=== PATIENT | male | born 1945 | race Two or more races ===

== ENCOUNTER 2017-03-06 22:29 | Emergency (ER) | payer OTHER, MEDICAID ==
[~2017-03-06] VITALS: Ht 160 cm; Wt 60.8 kg
[2017-03-07] MEDS ORDERED: ACETAMINOPHEN 500 MG TAB PO ONE (01:45)
[2017-03-07 02:31] VITALS: BP 120/76
== END 2017-03-07 02:56 | disposition home or self-care (01) ==
LOC: ER 22:34
DX: S02.80XA Fracture of other specified skull and facial bones, unspecified side, initial encounter for closed fracture (principal); I11.0 Hypertensive heart disease with heart failure; I50.9 Heart failure, unspecified; E11.9 Type 2 diabetes mellitus without complications; W01.0XXA Fall on same level from slipping, tripping and stumbling without subsequent striking against object, initial encounter; Y93.89 Activity, other specified; Y99.0 Civilian activity done for income or pay; Y92.69 Other specified industrial and construction area as the place of occurrence of the external cause
CPT/HCPCS: 70450; 70486; 72125

== ENCOUNTER 2017-06-10 15:37 | Emergency (ER) | payer OTHER, MEDICAID ==
[~2017-06-10] VITALS: Ht 157.5 cm; Wt 59.4 kg
[2017-06-10 16:36] LABS: Basophils # (auto) 0 uL; Basophils % (auto) 0.3 % (0.0-2.0); Eosinophils # (auto) 0 uL; Eosinophils % (auto) 0.3 % (0.0-7.0); Hemoglobin 15.1 g/dL (13.5-17.5); Lymphocytes # (auto) 1.1 uL; Lymphocytes % (auto) 13.7 % (10.0-50.0); Mean Corpuscular Hemoglobin 29.1 pg (28.0-32.0); Mean Corpuscular Hgb Conc. 33.4 g/dL (32.0-36.0); Mean Platelet Volume 7.8 fL (6.9-10.8); Monocytes # (auto) 0.5 uL; Monocytes % (auto) 5.9 % (0.0-12.0); Neutrophils # (auto) 6.5 uL; Neutrophils % (auto) 79.8 % (37.0-80.0); Nucleated Red Blood Cells % 0.3 %; Platelet Count (auto) 169 10^3/uL (140-450); Red Cell Distribution Width 13.8 % (11.8-14.3); White Blood Cell 8.2 10^3/uL (4.4-10.8)
[2017-06-10 17:02] LABS: Albumin 3.6 g/dL (3.4-5.0); BUN/Creatinine Ratio 16.5; Bilirubin, Total 0.8 mg/dL (0.2-1.0); Potassium 4.1 mmol/L (3.5-5.1); Total Protein 8.4 g/dL (6.4-8.2)
[2017-06-10] MEDS ORDERED: SODIUM CHLORIDE 0.9% 1,000 ML IV ONE (17:30)
[2017-06-10] MEDS ORDERED: DILTIAZEM HCL 25 MG/5 ML VIAL IV ONE (17:30)
[2017-06-10 18:27] VITALS: BP 167/80
== END 2017-06-10 18:38 | disposition short-term general hospital (02) ==
LOC: ER 15:44
DX: I63.9 Cerebral infarction, unspecified (principal); I62.00 Nontraumatic subdural hemorrhage, unspecified; I11.0 Hypertensive heart disease with heart failure; I50.9 Heart failure, unspecified; E11.9 Type 2 diabetes mellitus without complications
CPT/HCPCS: 36415; 70450; 71020; 80053; 82962; 83605; 84484; 85025; 87040; 93005; 96361; 96374; 99291

== ENCOUNTER 2018-05-03 14:05 | Emergency (ER) | payer OTHER, MEDICAID ==
[2018-05-03 15:20] VITALS: BP 183/108
== END 2018-05-03 17:01 | disposition home or self-care (01) ==
LOC: ER 14:13
DX: S05.02XA Injury of conjunctiva and corneal abrasion without foreign body, left eye, initial encounter (principal); T65.891A Toxic effect of other specified substances, accidental (unintentional), initial encounter; T26.62XA Corrosion of cornea and conjunctival sac, left eye, initial encounter; Y93.89 Activity, other specified; Y99.8 Other external cause status; Y92.89 Other specified places as the place of occurrence of the external cause

== ENCOUNTER → 2020-03-18 | Emergency (ER) | payer OTHER, MEDICAID ==
[~2020-03-18] VITALS: Ht 170.2 cm; Wt 59.0 kg
[2020-03-18 17:45] LABS: Basophils # (auto) 0 10 ^3/uL (0-0.2); Basophils % (auto) 0.3 % (0.0-2.0); Eosinophils # (auto) 0.1 10 ^3/uL (0-0.8); Eosinophils % (auto) 0.6 % (0.0-7.0); Hematocrit 29.3 % (41.0-53.0); Monocytes # (auto) 0.5 10 ^3/uL (0-1.3)
[2020-03-18 17:47] LABS: Hemoglobin 8.6 g/dL (13.5-17.5); Lymphocytes # (auto) 0.8 10 ^3/uL (0.4-5.4); Lymphocytes % (auto) 7.1 % (10.0-50.0); Mean Corpuscular Hemoglobin 21.4 pg (28.0-32.0); Mean Corpuscular Hgb Conc. 29.5 g/dL (32.0-36.0); Mean Corpuscular Volume 72.4 fL (80.0-100.0); Monocytes % (auto) 4.7 % (0.0-12.0); Neutrophils # (auto) 9.4 10 ^3/uL (1.6-8.6); Neutrophils % (auto) 87.3 % (37.0-80.0); Platelet Count (auto) 166 10^3/uL (140-450); Red Blood Cells 4.04 10^6/uL (4.5-5.90); White Blood Cell 10.8 10^3/uL (4.4-10.8)
[2020-03-18 17:48] LABS: Red Cell Distribution Width 27.2 % (11.8-14.3)
[2020-03-18 17:54] LABS: INR 1.13 (0.9-1.15); Partial Thromboplastin Time 26.8 sec (23.64-32.05)
[2020-03-18 21:45] VITALS: BP 100/51
== END | disposition home or self-care (01) ==
LOC: EDBD 15:17 → ER 15:17 → EDUNIT# 15:17
DX: R04.0 Epistaxis (principal); D64.9 Anemia, unspecified; I11.0 Hypertensive heart disease with heart failure; I50.9 Heart failure, unspecified; E11.9 Type 2 diabetes mellitus without complications
CPT/HCPCS: 30901; 36415; 85025; 85610; 85730

== ENCOUNTER 2020-06-26 19:43 | Inpatient (IN) | payer OTHER, MEDICAID ==
[~2020-06-26] VITALS: Ht 157.5 cm; Wt 57.6 kg
[2020-06-26 21:27] LABS: Basophils # (auto) 0 10 ^3/uL (0-0.2); Eosinophils # (auto) 0 10 ^3/uL (0-0.8); Hematocrit 34.5 % (41.0-53.0); Hemoglobin 10.9 g/dL (13.5-17.5); Monocytes # (auto) 0.9 10 ^3/uL (0-1.3)
[2020-06-26 21:29] LABS: Lymphocytes # (auto) 1.1 10 ^3/uL (0.4-5.4); Lymphocytes % (auto) 6.8 % (10.0-50.0); Mean Corpuscular Hemoglobin 25.8 pg (28.0-32.0); Mean Corpuscular Hgb Conc. 31.6 g/dL (32.0-36.0); Mean Corpuscular Volume 81.8 fL (80.0-100.0); Monocytes % (auto) 5.6 % (0.0-12.0); Neutrophils % (auto) 87.6 % (37.0-80.0); Platelet Count (auto) 227 10^3/uL (140-450); Red Blood Cells 4.22 10^6/uL (4.5-5.90); Red Cell Distribution Width 15.7 % (11.8-14.3)
[2020-06-26 21:35] LABS: INR 1.03 (0.9-1.15); Partial Thromboplastin Time 25.6 sec (23.0-31.2)
[2020-06-26 21:38] LABS: Calcium 9.5 mg/dL (8.5-10.1); Magnesium 2.7 mg/dL (1.6-2.6)
[2020-06-26 21:46] LABS: BUN/Creatinine Ratio 33.9; Bilirubin, Total 0.4 mg/dL (0.2-1.0)
[2020-06-26 21:51] LABS: Potassium 6.3 mmol/L (3.5-5.1)
[2020-06-26] MEDS ORDERED: DEXTROSE (50%) 50ML SYRG IV ONE (22:15)
[2020-06-26] MEDS ORDERED: FUROSEMIDE 20 MG/2 ML VIAL IV ONE (22:15)
[2020-06-26] MEDS ORDERED: SODIUM BICARBONATE 8.4% INJ 50ML SYRINGE IV ONE (22:15)
[2020-06-26] MEDS ORDERED: InsuLIN REG 1unit/0.01ml Soln (100units/ml) IV ONE (22:15)
[2020-06-26] MEDS ORDERED: ALBUTEROL SULF 2.5 MG/0.5ML(0.5%) NEB SOLN NEB ONE (22:15)
[2020-06-26] MEDS ORDERED: CALCIUM GLUC 4.65meq/50ml D5AE 50 ML IV ONE (22:15)
[2020-06-26] MEDS ORDERED: ENOXAPARIN SOD 60 MG/0.6 ML SYRINGE SC ONE (22:45)
[2020-06-27 00:25] LABS: Urine Bacteria MANY /hpf (None Seen); Urine Blood 2+ /uL (Negative); Urine Specific Gravity 1.015 (1.001-1.035); Urine WBC 3194 /hpf (0 - 3); Urine WBC Clumps PRESENT /hpf (None Seen)
[2020-06-27] MEDS ORDERED: dilTIAZem 120MG ER CAP PO ONE (00:45)
[2020-06-27] MEDS ORDERED: dilTIAZem 25 MG/5 ML VIAL IV ONE (00:45)
[2020-06-27 01:13] LABS: BUN/Creatinine Ratio 32.9
[2020-06-27] MEDS ORDERED: cefTRIAXone 1GM/50ML D5W 50 ML IV ONE (01:30)
[2020-06-27] MEDS ORDERED: MORPHINE SULF INJ 2 MG/ML SYRINGE 1ML IV PRN ×2 (04:00)
[2020-06-27] MEDS ORDERED: NITROGLYCERIN 0.4 MG SL TAB SL PRN (04:00)
[2020-06-27] MEDS ORDERED: SODIUM CHLORIDE 0.9% 1,000 ML IV SCH (04:00)
[2020-06-27] MEDS ORDERED: DEXTROSE (50%) 50ML SYRG IV PRN (04:00)
[2020-06-27] MEDS ORDERED: ONDANSETRON HCL 4 MG/2 ML VIAL IV PRN (04:00)
[2020-06-27] MEDS ORDERED: SODI650T PO (04:21)
[2020-06-27] MEDS ORDERED: APIX2.5T PO (04:21)
[2020-06-27] MEDS ORDERED: HYDR-2691 PO (04:21)
[2020-06-27] MEDS ORDERED: FIN5T PO (04:21)
[2020-06-27] MEDS ORDERED: METO1TAB9 PO (04:21)
[2020-06-27] MEDS ORDERED: TAMS0.4C36 PO (04:21)
[2020-06-27 05:52] LABS: Basophils # (auto) 0 10 ^3/uL (0-0.2); Basophils % (auto) 0.1 % (0.0-2.0); Eosinophils # (auto) 0 10 ^3/uL (0-0.8); Lymphocytes # (auto) 0.9 10 ^3/uL (0.4-5.4); Lymphocytes % (auto) 6.2 % (10.0-50.0); Mean Corpuscular Hgb Conc. 32.3 g/dL (32.0-36.0); White Blood Cell 14.1 10^3/uL (4.4-10.8)
[2020-06-27 05:54] LABS: Hematocrit 28.7 % (41.0-53.0); Hemoglobin 9.3 g/dL (13.5-17.5); Mean Corpuscular Hemoglobin 26.1 pg (28.0-32.0); Mean Corpuscular Volume 80.9 fL (80.0-100.0); Monocytes # (auto) 0.8 10 ^3/uL (0-1.3); Monocytes % (auto) 5.8 % (0.0-12.0); Neutrophils # (auto) 12.4 10 ^3/uL (1.6-8.6); Neutrophils % (auto) 87.9 % (37.0-80.0); Platelet Count (auto) 166 10^3/uL (140-450); Red Blood Cells 3.54 10^6/uL (4.5-5.90); Red Cell Distribution Width 15.2 % (11.8-14.3)
[2020-06-27 06:11] LABS: Albumin 3.1 g/dL (3.4-5.0); Calcium 9.3 mg/dL (8.5-10.1); Potassium 4.9 mmol/L (3.5-5.1)
[2020-06-27 06:13] LABS: BUN/Creatinine Ratio 33.8
[2020-06-27 06:16] LABS: Bilirubin, Total 0.3 mg/dL (0.2-1.0); Total Protein 7.5 g/dL (6.4-8.2)
[2020-06-27] MEDS: ACCU-CHEK COMFORT CURVE STRIP VI SCH ×4 (07:14→22:00)
[2020-06-27] MEDS: InsuLIN REG 1unit/0.01ml Soln (100units/ml) SC SCH ×4 (07:14→21:31)
[2020-06-27] MEDS ORDERED: SODIUM BICARBONATE 50ML VIAL 50 ML in SOD CHL 0.45% 1,000 ML IV SCH (08:30)
[2020-06-27 08:40] VITALS: BP 103/63
[2020-06-27 09:00] VITALS: BP 103/63
[2020-06-27] MEDS: APIXABAN 2.5 MG TAB PO SCH ×2 (09:45→22:00)
[2020-06-27] MEDS: TAMSULOSIN HYDROCHLORIDE 0.4 MG CAP PO SCH (09:45)
[2020-06-27] MEDS: FINASTERIDE 5 MG TAB PO SCH (09:45)
[2020-06-27] MEDS ORDERED: METOPROLOL SUCCINATE XL 50 MG TAB PO SCH (10:00)
[2020-06-27] MEDS ORDERED: hydrALAZINE HCL 25 MG TAB PO SCH (10:00)
[2020-06-27] MEDS: SODIUM BICARBONATE 50ML VIAL 50 ML in SOD CHL 0.45% 1,000 ML IV SCH ×2 (11:31→18:44)
[2020-06-27 13:00] VITALS: BP 97/52
[2020-06-27 13:34] LABS: Urine Bacteria FEW /hpf (None Seen); Urine Blood 3+ /uL (Negative); Urine WBC 5716 /hpf (0 - 3); Urine WBC Clumps PRESENT /hpf (None Seen)
[2020-06-27 13:37] LABS: Urine Specific Gravity 1.014 (1.001-1.035)
[2020-06-27 13:52] LABS: Protein, Urine 152.3 mg/dL (0.0-11.9)
[2020-06-27 17:00] VITALS: BP 106/62
[2020-06-27 22:00] VITALS: BP 90/56
[2020-06-28 05:00] VITALS: BP 96/57
[2020-06-28] MEDS: ACCU-CHEK COMFORT CURVE STRIP VI SCH ×4 (06:17→21:14)
[2020-06-28] MEDS: SODIUM BICARBONATE 50ML VIAL 50 ML in SOD CHL 0.45% 1,000 ML IV SCH ×2 (06:17→17:08)
[2020-06-28] MEDS: InsuLIN REG 1unit/0.01ml Soln (100units/ml) SC SCH ×4 (06:18→21:14)
[2020-06-28 06:22] LABS: Basophils # (auto) 0 10 ^3/uL (0-0.2); Basophils % (auto) 0.1 % (0.0-2.0); Lymphocytes # (auto) 1.3 10 ^3/uL (0.4-5.4); Neutrophils # (auto) 9.8 10 ^3/uL (1.6-8.6); Neutrophils % (auto) 81.4 % (37.0-80.0); White Blood Cell 12.1 10^3/uL (4.4-10.8)
[2020-06-28 06:24] LABS: Eosinophils # (auto) 0 10 ^3/uL (0-0.8); Eosinophils % (auto) 0.3 % (0.0-7.0); Hematocrit 24.8 % (41.0-53.0); Hemoglobin 8.1 g/dL (13.5-17.5); Lymphocytes % (auto) 10.5 % (10.0-50.0); Mean Corpuscular Hemoglobin 26.3 pg (28.0-32.0); Mean Corpuscular Hgb Conc. 32.6 g/dL (32.0-36.0); Mean Corpuscular Volume 80.7 fL (80.0-100.0); Monocytes # (auto) 0.9 10 ^3/uL (0-1.3); Monocytes % (auto) 7.7 % (0.0-12.0); Platelet Count (auto) 149 10^3/uL (140-450); Red Blood Cells 3.07 10^6/uL (4.5-5.90); Red Cell Distribution Width 15.6 % (11.8-14.3)
[2020-06-28 06:36] LABS: Albumin 2.7 g/dL (3.4-5.0); Calcium 8.4 mg/dL (8.5-10.1); Potassium 5.1 mmol/L (3.5-5.1)
[2020-06-28 06:40] LABS: Bilirubin, Total 0.2 mg/dL (0.2-1.0); Total Protein 6.2 g/dL (6.4-8.2)
[2020-06-28 06:49] LABS: BUN/Creatinine Ratio 41.8
[2020-06-28 09:00] VITALS: BP 92/57
[2020-06-28] MEDS: METOPROLOL SUCCINATE XL 50 MG TAB PO SCH ×2 (10:00→10:50)
[2020-06-28] MEDS ORDERED: cefTRIAXone 1GM/50ML D5W 50 ML IV SCH (10:00)
[2020-06-28] MEDS: TAMSULOSIN HYDROCHLORIDE 0.4 MG CAP PO SCH (10:50)
[2020-06-28] MEDS: FINASTERIDE 5 MG TAB PO SCH (10:50)
[2020-06-28] MEDS: APIXABAN 2.5 MG TAB PO SCH ×2 (10:50→21:14)
[2020-06-28 13:00] VITALS: BP 119/70
[2020-06-28] MEDS ORDERED: ERTAPENEM SOD INJ 1 GM in SODIUM CHL 0.9% 50 ML IV ONE (15:30)
[2020-06-28 17:02] VITALS: BP 100/62
[2020-06-28 22:00] VITALS: BP 107/64
[2020-06-29] MEDS: SODIUM BICARBONATE 50ML VIAL 50 ML in SOD CHL 0.45% 1,000 ML IV SCH (02:44)
[2020-06-29 05:00] VITALS: BP 100/58
[2020-06-29] MEDS: InsuLIN REG 1unit/0.01ml Soln (100units/ml) SC SCH ×4 (06:01→22:00)
[2020-06-29] MEDS: ACCU-CHEK COMFORT CURVE STRIP VI SCH ×4 (06:02→22:01)
[2020-06-29 06:43] LABS: Basophils # (auto) 0 10 ^3/uL (0-0.2); Basophils % (auto) 0.2 % (0.0-2.0); Eosinophils # (auto) 0.1 10 ^3/uL (0-0.8); Hematocrit 23.2 % (41.0-53.0); Hemoglobin 7.6 g/dL (13.5-17.5); Lymphocytes # (auto) 1.2 10 ^3/uL (0.4-5.4); Lymphocytes % (auto) 12.2 % (10.0-50.0); Mean Corpuscular Hemoglobin 26.4 pg (28.0-32.0); Mean Corpuscular Hgb Conc. 32.6 g/dL (32.0-36.0); Mean Corpuscular Volume 80.8 fL (80.0-100.0); Monocytes # (auto) 0.7 10 ^3/uL (0-1.3); Monocytes % (auto) 7.5 % (0.0-12.0); Neutrophils # (auto) 7.8 10 ^3/uL (1.6-8.6); Neutrophils % (auto) 79.1 % (37.0-80.0); Nucleated Red Blood Cells % 0.1 %; Platelet Count (auto) 143 10^3/uL (140-450); Red Blood Cells 2.88 10^6/uL (4.5-5.90); Red Cell Distribution Width 15.7 % (11.8-14.3); White Blood Cell 9.9 10^3/uL (4.4-10.8)
[2020-06-29 06:56] LABS: Albumin 2.4 g/dL (3.4-5.0); Calcium 7.9 mg/dL (8.5-10.1); Potassium 4.5 mmol/L (3.5-5.1)
[2020-06-29 06:59] LABS: BUN/Creatinine Ratio 39.3; Bilirubin, Total 0.2 mg/dL (0.2-1.0); Total Protein 5.7 g/dL (6.4-8.2)
[2020-06-29] MEDS ORDERED: SODIUM BICARBONATE 50ML VIAL 50 ML in SOD CHL 0.45% 1,000 ML IV SCH (08:30)
[2020-06-29 09:00] VITALS: BP 104/65
[2020-06-29] MEDS: METOPROLOL SUCCINATE XL 50 MG TAB PO SCH (10:00)
[2020-06-29] MEDS: APIXABAN 2.5 MG TAB PO SCH ×2 (10:00→21:29)
[2020-06-29] MEDS: FINASTERIDE 5 MG TAB PO SCH (10:00)
[2020-06-29] MEDS: TAMSULOSIN HYDROCHLORIDE 0.4 MG CAP PO SCH (10:00)
[2020-06-29] MEDS ORDERED: ERTAPENEM SOD INJ 0.5 GM in SODIUM CHL 0.9% 50 ML IV SCH (10:00)
[2020-06-29] MEDS: SOD CHL 0.45% 1,000 ML IV SCH ×2 (10:10→22:06)
[2020-06-29] MEDS: Glucerna Carbsteady SHAKE Vanilla 8oz PO SCH ×2 (12:26→18:32)
[2020-06-29] MEDS ORDERED: DIGOXIN (250MCG/ML) 2 ML AMPULE IV ONE (12:30)
[2020-06-29 12:36] VITALS: BP 109/63
[2020-06-29 17:20] VITALS: BP 126/98
[2020-06-29] MEDS: PIPERACILLIN-TAZOB 2.25GM 50 ML IV SCH (19:41)
[2020-06-29 22:01] VITALS: BP 134/73
[2020-06-30] MEDS: PIPERACILLIN-TAZOB 2.25GM 50 ML IV SCH ×3 (00:55→13:04)
[2020-06-30 05:29] VITALS: BP 116/58
[2020-06-30] MEDS: InsuLIN REG 1unit/0.01ml Soln (100units/ml) SC SCH ×2 (06:17→11:30)
[2020-06-30] MEDS: ACCU-CHEK COMFORT CURVE STRIP VI SCH ×2 (06:18→11:30)
[2020-06-30 07:30] LABS: Potassium 4.8 mmol/L (3.5-5.1)
[2020-06-30 07:43] LABS: Albumin 2.3 g/dL (3.4-5.0); BUN/Creatinine Ratio 30.8; Bilirubin, Total 0.2 mg/dL (0.2-1.0); Calcium 8.2 mg/dL (8.5-10.1); Total Protein 5.8 g/dL (6.4-8.2)
[2020-06-30 08:00] VITALS: BP 104/65
[2020-06-30] MEDS: Glucerna Carbsteady SHAKE Vanilla 8oz PO SCH (08:00)
[2020-06-30 09:00] VITALS: BP 114/67
[2020-06-30] MEDS: FINASTERIDE 5 MG TAB PO SCH (09:03)
[2020-06-30] MEDS: APIXABAN 2.5 MG TAB PO SCH (09:03)
[2020-06-30] MEDS: METOPROLOL SUCCINATE XL 50 MG TAB PO SCH (09:04)
[2020-06-30] MEDS: TAMSULOSIN HYDROCHLORIDE 0.4 MG CAP PO SCH (09:04)
[2020-06-30] MEDS ORDERED: DIGOXIN 0.125 MG TAB PO SCH (10:00)
[2020-06-30] MEDS ORDERED: PIPERACILLIN-TAZOB 3.375GM 100 ML IV SCH (10:00)
[2020-06-30] MEDS: SOD CHL 0.45% 1,000 ML IV SCH (11:25)
[2020-06-30 13:00] VITALS: BP 102/55
[2020-06-30] MEDS ORDERED: CIPR-173 PO (13:49)
[2020-06-30] MEDS ORDERED: OMEP-434 PO (14:10)
[2020-06-30] MEDS ORDERED: HYDROcodone-ACET 5/325MG TAB PO ONE (14:15)
[2020-06-30 16:17] VITALS: BP 108/58
[2020-06-30 17:09] VITALS: BP 107/68
== END 2020-06-30 17:15 | disposition home or self-care (01) | DRG 698 ==
LOC: ER 19:43 → TELE 19:44 → CENTRAL 06-27 07:46 → TELE-CENTR 06-28 21:38
PROVIDERS: ADMIT Hospitalist; ATTEND Hospitalist
DX: T83.511A Infection and inflammatory reaction due to indwelling urethral catheter, initial encounter (principal); N17.0 Acute kidney failure with tubular necrosis; N13.6 Pyonephrosis; I48.20 Chronic atrial fibrillation, unspecified; E87.2 Acidosis; I13.0 Hypertensive heart and chronic kidney disease with heart failure and stage 1 through stage 4 chronic kidney disease, or unspecified chronic kidney disease; I31.3 Pericardial effusion (noninflammatory); N18.4 Chronic kidney disease, stage 4 (severe); Y84.6 Urinary catheterization as the cause of abnormal reaction of the patient, or of later complication, without mention of misadventure at the time of the procedure; E87.5 Hyperkalemia; E11.65 Type 2 diabetes mellitus with hyperglycemia; D64.9 Anemia, unspecified; E11.22 Type 2 diabetes mellitus with diabetic chronic kidney disease; K40.90 Unilateral inguinal hernia, without obstruction or gangrene, not specified as recurrent; I25.10 Atherosclerotic heart disease of native coronary artery without angina pectoris; I72.3 Aneurysm of iliac artery; N32.0 Bladder-neck obstruction; B96.5 Pseudomonas (aeruginosa) (mallei) (pseudomallei) as the cause of diseases classified elsewhere; I50.9 Heart failure, unspecified; K57.30 Diverticulosis of large intestine without perforation or abscess without bleeding; K83.8 Other specified diseases of biliary tract; M43.17 Spondylolisthesis, lumbosacral region; N40.1 Benign prostatic hyperplasia with lower urinary tract symptoms; Z79.01 Long term (current) use of anticoagulants; Z79.4 Long term (current) use of insulin; Z82.49 Family history of ischemic heart disease and other diseases of the circulatory system; Z83.3 Family history of diabetes mellitus; Z86.73 Personal history of transient ischemic attack (TIA), and cerebral infarction without residual deficits
CPT/HCPCS: 36415; 51702; 71045; 74176; 76775; 80048; 80053; 81001; 82150; 82570; 82962; 83036; 83605; 83690; 83735; 83880; 84154; 84156; 84300; 84443; 84484; 85025; 85379; 85610; 85730; 87086; 87088; 87186; 93005; 93306; 94640; 96365; 96366; 96372; 96375; 99291; G0378; J0610; J0696; J1335; J1815; J2543